=== PATIENT | female | born 1995 | race American Indian/Alaskan Native ===

== ENCOUNTER 2016-10-13 18:08 | Outpatient (CLI) | payer MEDICAID ==
[2016-10-13] MEDS ORDERED: LACTATED RINGERS 500 ML IV ONE ×2 (19:11→19:12)
== END 2016-10-13 20:53 | disposition home or self-care (01) ==
LOC: TRG 18:08
PROVIDERS: ATTEND Obstetrics & Gynecology
DX: O77.9 Labor and delivery complicated by fetal stress, unspecified (principal); O47.9 False labor, unspecified; Z3A.00 Weeks of gestation of pregnancy not specified

== ENCOUNTER 2016-11-16 03:56 | Inpatient (IN) | payer MEDICAID ==
[2016-11-16] MEDS ORDERED: LACTATED RINGERS 1,000 ML ONE (05:25)
[2016-11-16] MEDS ORDERED: BRETHINE SUB-Q PRN (07:54)
[2016-11-16] MEDS ORDERED: ePHEDrine SULFATE IV PRN (07:54)
[2016-11-16] MEDS ORDERED: CERVIDIL VG ONE (07:54)
[2016-11-16] MEDS ORDERED: PITOCin/NS 30 UNIT/500ML 30 UNIT/500 ML BAG IV SCH (08:00)
[2016-11-16] MEDS ORDERED: NS IV SCH (08:00)
[2016-11-16] MEDS ORDERED: DRIP IV SCH (08:00)
[2016-11-16] MEDS ORDERED: POLYCILLIN/NS 2 GM/100 ML 2 GM/100 ML BAG IV ONE (08:00)
[2016-11-16] MEDS ORDERED: LACTATED RINGERS 1,000 ML IV SCH (08:00)
[2016-11-16] MEDS ORDERED: BRETHINE IVP PRN (08:00)
[2016-11-16] MEDS ORDERED: PITOCIN IV SCH (08:00)
[2016-11-16 08:13] LABS: Hematocrit 32.4 % (30.3-42.9); Mean Corpuscular HGB Conc 31 % (30-34); Mean Corpuscular Volume 74 fl (79-97); Platelet Count 250 K/mm3 (140-440); Red Blood Count 4.39 M/mm3 (3.65-5.03); Red Cell Distribution Width 18.4 % (13.2-15.2); White Blood Count 15.1 K/mm3 (4.5-11.0)
[2016-11-16 08:19] LABS: Mean Corpuscular Hemoglobin 23 pg (28-32)
[2016-11-16] MEDS ORDERED: PITOCin/NS 20 UNIT/1000ML DRIP 20 UNIT/1,000 ML BAG IV SCH (09:00)
--- NOTE | 2016-11-16 10:56 | History and Physical Report ---
History of Present Illness Date of examination: 11/16/16 Date of admission: 11/16/16 03:57 Chief complaint: Contractions since last night History of present illness: 20 y/o G1 PO now 41 weeks, has been presenting to L and D for the last 24 hours for R/O labor. Will admit and augment her today. 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 care at [facility] since 11 weeks gestation. 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 Family/Genetic History: diabetes, hypertension Social history: no significant social history - Obstetrical History Expected Date of Delivery: 11/09/16 Actual Gestation: 41 Week(s) 0 Day(s) : 1 Para: 0 Medications and Allergies Allergies Allergy/AdvReac Type Severity Reaction Status Date / Time No Known Allergies Allergy Verified 09/30/16 03:29 Home Medications Medication Instructions Recorded Confirmed Last Taken Type No Known Home Medications [No 04/04/16 04/04/16 Unknown History Reported Home Medications] Active Meds: Active Medications Fentanyl (Sublimaze) 100 mcg IV Q2H PRN PRN Reason: Labor Pain Lactated Ringer's (Lactated Ringers) 1,000 mls @ 125 mls/hr IV DIRECT KARON Ampicillin Sodium (Polycillin/Ns 1 Gm/50 Ml) 1 gm in 50 mls @ 100 mls/hr IV Q4H KARON PRN Reason: Protocol Lactated Ringer's (Lactated Ringers) 1,000 mls @ 125 mls/hr IV DIRECT KARON Oxytocin/Sodium Chloride (Pitocin/Ns 30 Unit/500ml) 30 unit in 500 mls @ 1 mls/ hr IV TITR KARON; 1 MILLIUNITS/MIN PRN Reason: Protocol Oxytocin/Sodium Chloride (Pitocin/Ns 20 Unit/1000ml Drip) 20 unit in 1,000 mls @ 125 mls/hr IV DIRECT KARON Mineral Oil (Mineral Oil) 30 ml PO QHS PRN PRN Reason: Constipation Review of Systems All systems: negative - Vital Signs Vital signs: Vital Signs Pulse BP 102 H 113/60 11/16/16 05:11 11/16/16 05:11 Temp Pulse Resp BP Pulse Ox 98.6 F 119 H 18 122/55 91 11/16/16 09:22 11/16/16 10:38 11/16/16 09:22 11/16/16 09:22 11/16/16 10:38 - Physical Exam Breasts: Positive: deferred Cardiovascular: Regular rate Lungs: Positive: Clear to auscultation Abdomen: Positive: soft Vulva: both: normal Vagina: Positive: normal moisture Uterus: Positive: enlarged Deep Tendon Reflex Grade: Normal +2 - Obstetrical FHR: category 1 Uterine Contraction Monitor Mode: External Cervical Dilatation: 1 Cervical Effacement Percentage: 70 station: -3 Uterine Contraction Pattern: Regular Uterine Contraction Intensity: Moderate Results Result Diagrams: 11/16/16 05:39 Abnormal lab results 11/16/16 Range/Units 05:39 WBC 15.1 H (4.5-11.0) K/mm3 Hgb 10.0 L (10.1-14.3) gm/dl MCV 74 L (79-97) fl MCH 23 L (28-32) pg RDW 18.4 H (13.2-15.2) % All other labs normal. Assessment and Plan A: IUP @ 41 weeks, early labor P: Cervadil Expect
[2016-11-16] MEDS: SUBLIMAZE IV PRN ×4 (10:58→21:52)
[2016-11-16] MEDS ORDERED: POLYCILLIN/NS 1 GM/50 ML 1 GM/50 ML BAG IV SCH (12:00)
[2016-11-16] MEDS: LACTATED RINGERS 1,000 ML IV SCH (15:19)
[2016-11-16] MEDS ORDERED: MINERAL OIL PO PRN (22:00)
[2016-11-16] MEDS: STADOL IV PRN (23:35)
[2016-11-17] MEDS: LACTATED RINGERS 1,000 ML IV SCH ×2 (00:32→08:17)
[2016-11-17] MEDS: STADOL IV PRN (03:11)
--- NOTE | 2016-11-17 06:41 | Event Note ---
Date: 11/17/16 S: Feeling contractions, but irregular O: Cervadil pulled at 2000 hrs yesterday due to multiple variables On exam this morning there was no membranes felt, Apparent SROM at some point during the night, IUPC and FSE placed. No Fluid noted. CAT I tracing A: IUP at 41.1 weeks P: Pitocin started at 2 mu, Amp started, epidural
[2016-11-17] MEDS ORDERED: POLYCILLIN/NS 2 GM/100 ML 2 GM/100 ML BAG IV ONE (07:00)
[2016-11-17] MEDS ORDERED: ePHEDrine SULFATE IV PRN (08:21)
[2016-11-17] MEDS ORDERED: NARCAN 2 MG/2 ML IV PRN (08:21)
--- NOTE | 2016-11-17 08:21 | Anesthesia Consultation ---
Anesthesia Consult and Med Hx Date of service: 11/17/16 - Airway Anesthetic Teeth Evaluation: Good ROM Head & Neck: Adequate Mental/Hyoid Distance: Adequate Mallampati Class: Class II Intubation Access Assessment: Probably Good - Pre-Operative Health Status ASA Pre-Surgery Classification: ASA2 Proposed Anesthetic Plan: Epidural, Spinal - Pulmonary Hx Asthma: Yes (last incident 09/19; used inhaler) COPD: No Hx Pneumonia: No - Cardiovascular System Hx Hypertension: No - Central Nervous System Hx Seizures: No Hx Psychiatric Problems: No - Endocrine Hx Renal Disease: No Hx End Stage Renal Disease: No Hx Hypothyroidism: No Hx Hyperthyroidism: No - Hematic Hx Anemia: Yes Hx Sickle Cell Disease: No - Other Systems Hx Alcohol Use: Yes (occas social) Hx Obesity: Yes (BMI 45.9)
[2016-11-17] MEDS ORDERED: ePHEDrine SULFATE ONE (08:48)
[2016-11-17] MEDS ORDERED: REGLAN ONE (08:54)
[2016-11-17] MEDS ORDERED: BICITRA ONE (08:54)
[2016-11-17] MEDS ORDERED: PEPCID IV ONE (08:55)
[2016-11-17] MEDS ORDERED: ANCEF/STERILE WATER 2 GM/20 ML 2 GM/20 ML SYRINGE IV ONE (08:57)
[2016-11-17] MEDS ORDERED: fentaNYL-BUPIV 2 MCG/ML-0.125% 2 MCG/1 ML BAG EPIDURAL SCH (09:00)
[2016-11-17] MEDS ORDERED: NEO SYNEPHRINE/NS Syringe(OR USE) IV ONE (09:05)
[2016-11-17] MEDS ORDERED: XYLOCAINE MPF 2% ONE ×4 (09:11→09:38)
[2016-11-17] MEDS ORDERED: WATER FOR IRRIG STERILE IR ONE (09:18)
[2016-11-17] MEDS ORDERED: NACL 0.9% IR ONE (09:18)
[2016-11-17] MEDS ORDERED: MORPHINE ONE (09:36)
[2016-11-17] MEDS ORDERED: NACL P/F VIAL (10 ML) 10 ML ONE (09:37)
[2016-11-17] MEDS ORDERED: NARCAN 0.4 MG/1 ML IV PRN (10:03)
[2016-11-17] MEDS ORDERED: ZOFRAN IV PRN (10:03)
[2016-11-17] MEDS ORDERED: PHENERGAN PR PRN (10:03)
[2016-11-17] MEDS ORDERED: SENOKOT PO PRN (10:03)
[2016-11-17] MEDS ORDERED: DILAUDID IV PRN (10:03)
[2016-11-17] MEDS ORDERED: NORCO 5/325 PO PRN (10:03)
[2016-11-17] MEDS ORDERED: LANSINOH TP PRN (10:03)
[2016-11-17] MEDS ORDERED: TYLENOL PO PRN (10:03)
[2016-11-17] MEDS ORDERED: MILK OF MAGNESIA PO PRN (10:03)
[2016-11-17] MEDS ORDERED: TUCKS PAD TP PRN (10:03)
[2016-11-17] MEDS ORDERED: MOTRIN PO PRN (10:03)
[2016-11-17] MEDS ORDERED: MYLICON PO PRN (10:03)
[2016-11-17] MEDS ORDERED: DEMEROL ONE (10:12)
--- NOTE | 2016-11-17 10:13 | Operative Report ---
Operative Report Operative Report: Date of procedure: 11/17/2016 Pre-operative diagnosis: 1. Intrauterine at 41-1/7 weeks 2. Nonreassuring surveillance 3. 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 Oleary EBL: 500 mL's Findings: A 2988 g meconium-stained male infant Apgars 7 at 1 minute 8 at 5 minutes. Thick meconium fluid. Normal uterus. Normal tubes and ovaries bilaterally. Procedure: After the patient was prepped and draped in usual sterile fashion, and after satisfactory level of epidural anesthesia was obtained, the skin knife was used to make a transverse skin incision. The incision was excised down to layer of the fascia, which was nicked in the midline and extended laterally using the Bovie cautery. The rectus muscles were dissected off the rectus fascia both superiorly and inferiorly. The rectus bellies in the midline, and the peritoneum was entered under direct visualization. The peritoneal incision was extended superiorly and inferiorly. A bladder flap was created and the bladder blade was then placed. The uterus was scored in a curvilinear linear fashion, entered in the midline revealing meconium amniotic fluid. The infant's head was delivered onto the surgical field, and the oropharynx and nasopharynx were bulb suctioned. The rest of the 's body was delivered, cord was doubly clamped and cut and the was handed to the waiting respiratory team. The placenta was manually removed from the uterus, and the uterus removed from its normal anatomical position. After gentle uterine lavage, the incision was inspected and found to be without extensions. It was then closed in 2 layers using 0 Vicryl suture in a running interlocking fashion, the second layer imbricating the first. After good hemostasis was achieved, copious amounts or irrigation was performed, and the gutters were suctioned free of blood and blood clots. Tisseel sealant was sprayed across the uterine incision. The uterus was then returned to its normal anatomical position, and after excellent hemostasis assured, the peritoneum was reapproximated using 3-0 Vicryl suture in a running interlocking fashion, and then the rectus muscles were reapproximated using 3-0 Vicryl suture in a figure- of-eight configuration. The fascia was then reapproximated using 0 Vicryl suture in running interlocking fashion. The subcutaneous layer was made hemostatic using Bovie cautery, the Tisseel sealant was sprayed across the fascial incision and the skin edges reapproximated using 4-0 Vicryl suture in a subcuticular fashion. Patient tolerated the procedure well was transported to recovery in stable condition.
[2016-11-17] MEDS ORDERED: ANCEF/NS 1 GM/50 ML 1 GM/50 ML BAG IV SCH (11:00)
[2016-11-17] MEDS ORDERED: PITOCin/NS 20 UNIT/1000ML DRIP 20 UNIT/1,000 ML BAG IV SCH (11:00)
[2016-11-17] MEDS ORDERED: D5LR 1,000 ML IV SCH (11:00)
[2016-11-17] MEDS ORDERED: SODIUM CHLORIDE FLUSH SYRINGE 10 ML IV NR (11:00)
[2016-11-17] MEDS ORDERED: BENADRYL IV PRN (11:00)
--- NOTE | 2016-11-17 11:31 | Post Anesthesia Evaluation ---
- Post Anesthesia Evaluation Patient Participated: Yes Airway Patent: Yes Stable Respiratory Function: Yes Temp > 96.8F: Yes Pain Manageable: Yes Adequeate Hydration: Yes Anesthesia Complications: No Block Receding Appropriately: Not Applicable
[2016-11-17] MEDS: TORADOL IV PRN (12:32)
[2016-11-18 00:43] LABS: Hematocrit 28.6 % (30.3-42.9); Hemoglobin 8.7 gm/dl (10.1-14.3)
[2016-11-18] MEDS ORDERED: ANCEF/NS 1 GM/50 ML 1 GM/50 ML BAG IV SCH (01:00)
[2016-11-18] MEDS: TORADOL IV PRN (01:37)
[2016-11-18] MEDS ORDERED: BOOSTRIX IM ONE ×2 (06:00→10:04)
[2016-11-18] MEDS: PERCOCET 5/325 PO PRN ×3 (09:15→23:08)
--- NOTE | 2016-11-18 09:58 | Progress Note ---
Subjective Date of service: 11/18/16 Interval history: 1st POD after Patient is in the bed, comfortable. Pain is controlled with pain meds. No residual neurological deficit. No anesthesia complications Objective - Constitutional Vitals: Vital Signs - 12hr 11/18/16 11/18/16 11/18/16 00:00 04:00 07:46 Temperature 98.2 F 98.4 F 97.9 F Pulse Rate [ 78 63 84 From Monitor] Respiratory 20 20 20 Rate Blood Pressure 135/64 122/58 118/68 [Right Arm] 11/18/16 09:15 Temperature Pulse Rate [ From Monitor] Respiratory 20 Rate Blood Pressure [Right Arm] - Labs CBC & Chem 7: 11/18/16 00:15 Labs: Abnormal lab results 11/18/16 Range/Units 00:15 Hgb 8.7 L (10.1-14.3) gm/dl Hct 28.6 L (30.3-42.9) %
[2016-11-18] MEDS ORDERED: M-M-R II VACCINE SUB-Q ONE (10:04)
[2016-11-18] MEDS: FEOSOL PO SCH (10:07)
[2016-11-18] MEDS: PRENATAL VITAMIN PO SCH (10:07)
--- NOTE | 2016-11-18 10:24 | Progress Note ---
Assessment and Plan A: POD 1 Aysmptomatic anemia Pain well controlled Ambulating in NICU P: D/C tomorrow or the following day Repeat H/H in AM Encouraged taking iron and vitamins upon d/c Encouraged ambulation Subjective - Subjective Date of service: 11/18/16 Principal diagnosis: POD 1 Patient reports: appetite normal, voiding normally, pain well controlled, ambulating normally : doing well Objective - Vital Signs Latest vital signs: Vital Signs Temp Pulse Pulse Resp BP BP Pulse Ox 11/18/16 09:15 20 11/18/16 07:46 97.9 F 84 20 118/68 11/18/16 04:00 98.4 F 63 20 122/58 11/18/16 00:00 98.2 F 78 20 135/64 11/17/16 17:30 98.3 F 71 20 107/47 11/17/16 11:10 64 16 96/52 99 11/17/16 11:00 98.0 F 70 20 99/48 11/17/16 10:55 79 18 89/51 11/17/16 10:40 78 16 88/58 99 11/17/16 10:25 79 16 104/55 99 Intake and Output 11/17/16 11/18/16 11/18/16 22:59 06:59 14:59 Intake Total 1085 500 120 Output Total 1000 700 Balance 85 -200 120 Intake: IV 875 500 ANCEF/NS 1 GM/50 ML 1 gm 50 In 50 ml @ 100 mls/hr IV Q8H KARON Rx#:[id number] ANCEF/NS 1 GM/50 ML 1 gm 50 In 50 ml @ 100 mls/hr IV Q8H KARON Rx#:[id number] D5lr 1,000 ml @ 125 mls/ 700 450 hr IV DIRECT KARON Rx#: [id number] PITOCin/NS 20 UNIT/1000ML 125 DRIP 20 unit In 1,000 ml @ 250 mls/hr IV TITR KARON Rx#:[id number] Oral 210 Intake, Free Water 120 Output: Urine 1000 700 Indwelling Catheter 1000 Void 700 Other: Total, Intake Amount 120 Total, Output Amount 400 300 - Exam Cardiovascular: Present: Regular rate Lungs: Present: Normal air movement Abdomen: Present: normal appearance, soft, normal bowel sounds Uterus: Present: firm, fundal height below umbilicus Extremities: Present: normal Deep Tendon Reflex Grade: Normal +2 Incision: Present: normal, dry, intact, dressed - Labs Labs: Abnormal lab results 11/18/16 Range/Units 00:15 Hgb 8.7 L (10.1-14.3) gm/dl Hct 28.6 L (30.3-42.9) %
[2016-11-19 06:53] LABS: Hematocrit 26.2 % (30.3-42.9); Hemoglobin 8.2 gm/dl (10.1-14.3); Mean Corpuscular HGB Conc 31 % (30-34); Mean Corpuscular Volume 74 fl (79-97); Platelet Count 235 K/mm3 (140-440); Red Blood Count 3.55 M/mm3 (3.65-5.03); Red Cell Distribution Width 18.4 % (13.2-15.2)
[2016-11-19 07:03] LABS: Mean Corpuscular Hemoglobin 23 pg (28-32)
[2016-11-19] MEDS: PERCOCET 5/325 PO PRN ×3 (07:22→18:21)
--- NOTE | 2016-11-19 10:22 | Progress Note ---
Assessment and Plan A: POD #3 Asyptomatic Anemia P: Follow Routine PostOp Orders Continue PO FESO4 D/C Home today RTO in One Week Subjective - Subjective Date of service: 11/19/16 Principal diagnosis: POD 1 Patient reports: appetite normal, voiding normally, pain well controlled, flatus , ambulating normally [place]: in NICU, bottle feeding (and ) Objective - Vital Signs Latest vital signs: Vital Signs Temp Pulse Resp BP 11/19/16 08:57 98.2 F 75 20 115/69 11/19/16 00:00 98.4 F 86 20 134/63 11/18/16 17:01 20 11/18/16 16:40 98.1 F 76 20 106/62 Intake and Output 11/18/16 11/19/16 11/19/16 22:59 06:59 14:59 Intake Total 840 360 Balance 840 360 Intake: Oral 600 360 Intake, Free Water 240 Other: Total, Intake Amount 240 360 # Voids Void 3 1 1 - Exam Breasts: Present: normal Cardiovascular: Present: Regular rate Lungs: Present: Clear to auscultation, Normal air movement Abdomen: Present: normal appearance, soft, normal bowel sounds Uterus: Present: normal, firm, fundal height below umbilicus Extremities: Present: normal Incision: Present: normal, dry, intact - Labs Labs: Abnormal lab results 11/19/16 Range/Units 06:35 RBC 3.55 L (3.65-5.03) M/mm3 Hgb 8.2 L (10.1-14.3) gm/dl Hct 26.2 L (30.3-42.9) % MCV 74 L (79-97) fl MCH 23 L (28-32) pg RDW 18.4 H (13.2-15.2) %
--- NOTE | 2016-11-19 10:23 | Discharge Summary ---
Providers - Providers Date of Admission: 11/16/16 03:57 Date of discharge: 11/19/16 Attending physician: CLAUDIO QUIROZ MD Primary care physician: CLAUDIO QUIROZ MD Hospitalization Reason for admission: induction of labor Delivery: Procedure: primary low transverse Episiotomy: none Laceration: none Incision: normal, dry, intact Other procedures: none complications: none Discharge diagnosis: IUP at term delivered baby: male Condition at discharge: Good Disposition: DISCHARGED TO HOME OR SELFCARE Plan - Discharge Medications Prescriptions: Ferrous Sulfate [Feosol 325 MG tab] 325 mg PO BID #60 tablet HYDROcodone/APAP 5-325 [[place] 5/325] 1 each PO Q6HR PRN #30 tablet PRN Reason: Pain Ibuprofen [Motrin] 800 mg PO Q8HR PRN #30 tablet PRN Reason: Moder Pain Unrelieved By [place] Vit W-Ca,Fe,FA(<1 mg) [ Vitamins] 1 each PO DAILY #30 tablet - Provider Discharge Summary Activity: routine, no sex for 6 weeks, no heavy lifting 4 weeks, no strenuous exercise Diet: routine Instructions: routine Additional instructions: [] Smoking cessation referral if applicable(refer to patient education folder for contact #) [] Refer to [facility]'s [facility] Booklet Call your doctor immediately for: * Fever > 100.5 * Heavy vaginal bleeding ( >1 pad per hour) * Severe persistent headache * Shortness of breath * Reddened, hot, painful area to leg or breast * Drainage or odor from incision. * Keep incision clean and dry at all times and follow doctor's instructions regarding bathing/showering - Follow up plan Follow up: CARLEY ARROYO CNM [Advanced Practice Nurse] - 7 Days
[2016-11-19] MEDS: PRENATAL VITAMIN PO SCH (13:02)
[2016-11-19] MEDS: FEOSOL PO SCH (13:02)
[2016-11-19 18:58] VITALS: BP 135/73
== END 2016-11-19 20:10 | disposition home or self-care (01) | DRG 766 ==
LOC: TRG 03:56 → LD 03:57 → APU 11-17 09:20 → OB 11-17 11:47
PROVIDERS: ADMIT Obstetrics & Gynecology; ATTEND Obstetrics & Gynecology
PROC: 10D00Z1 Extraction of Products of Conception, Low, Open Approach (ICD-10-PCS; principal; 2016-11-17)
DX: O99.824 Streptococcus B carrier state complicating childbirth (principal); O99.52 Diseases of the respiratory system complicating childbirth; O42.90 Premature rupture of membranes, unspecified as to length of time between rupture and onset of labor, unspecified weeks of gestation; O99.214 Obesity complicating childbirth; E66.9 Obesity, unspecified; O77.0 Labor and delivery complicated by meconium in amniotic fluid; O99.02 Anemia complicating childbirth; D64.9 Anemia, unspecified; Z3A.41 41 weeks gestation of pregnancy; Z82.49 Family history of ischemic heart disease and other diseases of the circulatory system; Z83.3 Family history of diabetes mellitus; Z37.0 Single live birth
CPT/HCPCS: 36415; 59200; 85014; 85018; 85027; 86850; 86900; 86901; 88307; 90471; 90715; 99211; C9250; G0463; J0290; J0595; J0690; J1200; J1885; J2175; J2270; J2370; J2590; J2765; J3010; J7120; J7121; Q0177

== ENCOUNTER 2019-09-12 17:55 | Emergency (ER) | payer SELFPAY ==
[2019-09-12 18:53] VITALS: BP 134/74
== END 2019-09-12 21:30 | disposition left against medical advice (07) ==
LOC: ED 17:55
DX: R51 Headache (principal); Z53.21 Procedure and treatment not carried out due to patient leaving prior to being seen by health care provider

== ENCOUNTER 2021-10-08 09:18 | Outpatient (CLI) | payer MEDICAID ==
[2021-10-08] MEDS ORDERED: LACTATED RINGERS 1,000 ML IV ONE (11:09)
[2021-10-08 11:45] LABS: Bilirubin,Urine NEG (Negative); Blood,Urine NEG (Negative); Color,Urine Yellow (Yellow); Mucus,Urine 2+ /HPF; Urobilinogen,Urine < 2.0 mg/dL (<2.0)
[2021-10-08 11:49] VITALS: BP 116/54
== END 2021-10-08 13:43 | disposition home or self-care (01) ==
LOC: TRG 09:18 → APU 09:19 → TRG 13:43
PROVIDERS: ATTEND Obstetrics & Gynecology
DX: O26.893 Other specified pregnancy related conditions, third trimester (principal); R10.9 Unspecified abdominal pain; M54.50 Low back pain, unspecified; Z3A.34 34 weeks gestation of pregnancy
CPT/HCPCS: 59025; 81001